=== PATIENT | male | born 1950 | race Hispanic/Latino ===

== ENCOUNTER 2025-05-13 16:15 | Emergency (ER) | payer SELFPAY ==
--- NOTE | 2025-05-13 16:17 | ED.GENADULT ---
HPI - General Adult General Chief complaint: Abdominal Pain Stated complaint: Abdominal Pain/Feet Swelling/Bloated Abdomen Time Seen by Provider: 05/13/25 16:35 Source: patient, RN notes reviewed and doctorate of chiropractic ( Malay) Mode of arrival: ambulatory Limitations: no limitations History of Present Illness HPI narrative: Presents to the [facility] with daughters. 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 Daughters report that he has a history of blood sugar issues, prostate issues. For the last week has had abdominal pain, bloating, firm abdomen, bilateral lower leg edema and if he tries eating has pain and, and bloating. Daughter reports that he just arrived from [place] daughter is requesting refills of his medications, has not had them in a little while. Onset (ago): week(s) (1) Related Data Home Medications ?Medication ?Instructions ?Recorded ?Confirmed ?Last Taken ?Type metformin 1,000 mg tablet 1,000 mg PO DAILY 05/13/25 Unknown History tamsulosin 0.4 mg capsule 0.4 mg PO DAILY 05/13/25 Unknown History Allergies Allergy/AdvReac Type Severity Reaction Status Date / Time No Known Allergies Allergy Verified 05/13/25 16:49 Review of Systems Review of Systems: All systems reviewed & are unremarkable except as noted in HPI and below Constitutional: Constitutional: Reports no additional constitutional complaints Cardiovascular: Cardiovascular: Reports as per HPI, Denies chest pain, Reports edema ( Abdomen, legs) and Denies dyspnea Respiratory: Respiratory: Reports no additional respiratory complaints, Denies chest congestion, Denies cough and Denies dyspnea Gastrointestinal: Gastrointestinal: Reports as per HPI, Reports abdominal pain, Reports belching, Reports bloating and Reports early satiety Musculoskeletal: Musculoskeletal: Reports no additional musculoskeletal complaints Integumentary/Breasts: Skin/Breast: Reports system reviewed and no additional complaints, except as docu PMFSH Comments At the time of my signature, I reviewed and agree with the nursing past medical, surgical, social, and family history. There is no relevant family history pertinent to the patient complaint. Exam Const: General: cooperative, well developed, alert, ill appearing acutely and chronically, tired appearing, uncomfortable and well nourished Nutritional Appearance: overweight Orientation/consciousness: patient oriented x3 Limitations: no limitations HENMT: Head: normal to inspection Eyes: General: appearance normal, both eyes and all related structures Alignment and Position: alignment normal Neck: Neck: normal visual inspection, full ROM, no lymphadenopathy and no meningeal signs Chest: Chest palpation & inspection: normal inspection of the chest Resp: Effort & Inspection: normal respiratory effort and able to speak in complete sentences Auscultation: no crackles, no rales, no rhonchi, no wheezes and diminished lung sounds Cardio: Rate: regular rate GI: Inspection: distended GI Palp: Yes abdominal tenderness and Yes Firmness to palpation present (GI) Auscultation: Hypoactive bowel sounds present Skin: General skin exam: no rashes or lesions noted, dry skin and other ([place]) Neuro: General: patient oriented x3, moves all extremities and no meningeal signs Cognition (Neuro): normal cognition Speech: normal speech Extrem: General: normal to inspection, full ROM, capillary refill normal and normal gait Other: bilateral +2 edema to at least knees Psych: Appearance: grossly normal and well kempt Mental Status: mental status grossly normal Speech and movement: Normal speech and movement present and Clear speech present Affect: normal affect Attitude: cooperative Course Course Level of Care: Express Care Visit Vital Signs Vital signs: Vital Signs Temperature 98.2 F 05/13/25 16:29 Pulse Rate 91 05/13/25 16:29 Respiratory Rate 22 H 05/13/25 16:29 Blood Pressure 158/84 H 05/13/25 16:29 Pulse Oximetry 94 05/13/25 16:29 Oxygen Delivery Room Air 05/13/25 16:29 Temperature 98.2 F 05/13/25 16:29 Pulse Rate 91 05/13/25 16:29 Respiratory Rate 22 H 05/13/25 16:29 Blood Pressure 158/84 H 05/13/25 16:29 Pulse Oximetry 94 05/13/25 16:29 Oxygen Delivery Room Air 05/13/25 16:29 reviewed MDM MDM Narrative Medical decision making narrative: patient interviewed with her daughters, through doctorate of chiropractic service. Patient looking acutely ill, abdominal pain, about leg swelling for approximately 1 week. Just arrived from [place]. Blood sugar is 85 here in clinic discussed transfer for higher level of care. Daughter wants to go [facility], called spoke with . she stated that it would be best if he went for higher level of care such as [facility] or [facility]. states he arrives she would be happy to see him. Discuss this with daughter, daughter became upset, signed out against medical advice and stated that she will talk with her family to decide where to go. Is asking for his prostate medication as well as diabetes medication, does not know the names. Discussed with daughter through the doctorate of chiropractic that we will not be prescribing medications that he needs a larger evaluation that we can offer in an urgent care. Discharge instructions reviewed with patient, as well as provided in writing per nursing staff. The instructions also include specific and strict return/GO TO THE ER as well as f/u information. All questions have been answered, and the patient deny any further questions with discharge and discharge plan. Some parts of this dictation were generated by voice recognition software and may contain typographical and/or grammatical inaccuracies. Differential Diagnosis Differential Diagnosis: Prostate cancer, heart failure, liver issues, diabetic ketoacidosis, bowel blockage Lab Data Labs: Lab Results 05/13/25 Range/Units 16:40 POC Capillary Glucose 85 (65-105) mg/dl reviewed Discharge Plan Discharge Clinical Impression: Abdominal pain, Leg edema Patient Disposition: Left Against Medical Advice Condition: Stable Patient Language: Malay Prescriptions: No Action metformin 1,000 mg tablet 1,000 mg PO DAILY tamsulosin 0.4 mg capsule 0.4 mg PO DAILY Follow-up/Referrals: UNKNOWN,DOCTOR [Non-Staff]
[2025-05-13 16:29] VITALS: BP 158/84; PULSE 91; RESP 22; TEMP 36.8; O2SAT 94
== END 2025-05-13 16:58 | disposition left against medical advice (07) ==
LOC: EXPCOLL 16:21
PROVIDERS: Emergency Provider Nurse Practitioner
DX: R10.9 Unspecified abdominal pain (principal); R60.0 Localized edema; N40.0 Benign prostatic hyperplasia without lower urinary tract symptoms; E11.9 Type 2 diabetes mellitus without complications; Z79.84 Long term (current) use of oral hypoglycemic drugs
CPT/HCPCS: 82948; 99212; G0463